=== PATIENT | female | born 1990 | race Caucasian/White ===

== ENCOUNTER 2023-10-29 08:00 | Outpatient (CLI) | payer SELFPAY ==
[2023-10-29 17:10] LABS: BILIRUBIN,URINE NEGATIVE (NEGATIVE); CLARITY,URINE CLEAR (CLEAR); GLUCOSE, URINE (UA) NEGATIVE (NEGATIVE); KETONES,URINE (UA) NEGATIVE (NEGATIVE); LEUKOCYTE ESTERASE, URINE NEGATIVE (NEGATIVE); NITRITE,URINE NEGATIVE (NEGATIVE); OCCULT BLOOD,URINE NEGATIVE (NEGATIVE); PH,URINE 6.5 PH (5.0-7.5); PROTEIN,URINE NEGATIVE (NEGATIVE); UROBILINOGEN,URINE 0.2 (NORMAL) E.U./dL (NORMAL)
[2023-10-29 17:29] LABS: BACTERIA,URINE Few /HPF (None Seen); RBC,URINE 0-5 /HPF (0-5); SQUAMOUS EPITHELIAL CELL,UR MOD Squamous (<= Few); WBC,URINE 0-3 /HPF (0-5)
== END 2023-10-29 23:59 | disposition home or self-care (01) ==
LOC: LAB.WC 08:00
PROVIDERS: ATTEND Obstetrics & Gynecology
DX: Z34.90 Encounter for supervision of normal pregnancy, unspecified, unspecified trimester (principal)
CPT/HCPCS: 81001; 87077; 87086; 87181

== ENCOUNTER 2023-11-09 10:07 | Outpatient (CLI) | payer SELFPAY ==
[2023-11-09 10:28] LABS: BASOPHILS % (AUTO) 0.9 %; EOSINOPHILS # (AUTO) 0.4 10^3/uL (0.0-0.7); EOSINOPHILS % (AUTO) 8.1 %; HCT - HEMATOCRIT 38.7 % (37.0-47.0); HGB - HEMOGLOBIN 12.1 g/dL (12.0-16.0); LYMPHOCYTES % (AUTO) 22.6 %; MEAN CORPUSCULAR HEMOGLOBIN 26.5 pg (27.0-31.0); MEAN CORPUSCULAR HGB CONC 31.3 g/dL (32.0-36.0); MEAN CORPUSCULAR VOLUME 84.9 fL (81.0-99.0); MEAN PLATELET VOLUME 10.6 fL (7.9-10.8); MONOCYTES # (AUTO) 0.4 10^3/uL (0.0-1.0); MONOCYTES % (AUTO) 8.6 %; NEUTROPHILS # (AUTO) 2.6 10^3/uL (1.5-6.6); NEUTROPHILS % (AUTO) 59.6 %; PLT - PLATELET COUNT 254 10^3/uL (130-450); RED BLOOD COUNT 4.56 10^6/uL (4.20-5.40); RED CELL DISTRIBUTION WIDTH 14.6 % (12.0-15.0); WHITE BLOOD COUNT 4.4 x10^3/uL (4.8-10.8)
[2023-11-10 03:09] LABS: HBsAG SCREEN Negative (Negative)
[2023-11-10 05:12] LABS: RPR Non Reactive (Non Reactive)
[2023-11-10 07:10] LABS: HIV SCREEN 4TH GENERATION Non Reactive (Non Reactive)
[2023-11-10 09:10] LABS: VARICELLA-ZOSTER AB IGG 222 index (Immune >165)
== END 2023-11-09 10:08 | disposition home or self-care (01) ==
LOC: LAB 10:07
PROVIDERS: ATTEND Obstetrics & Gynecology
DX: Z34.90 Encounter for supervision of normal pregnancy, unspecified, unspecified trimester (principal)
CPT/HCPCS: 36415; 85025; 86592; 86762; 86787; 86803; 86850; 86900; 86901; 87340; 87389

== ENCOUNTER 2023-11-26 10:43 | Outpatient (CLI) | payer BC ==
--- NOTE | 2023-11-26 15:22 | Ultrasound Report ---
PROCEDURE: OB 1st Trimester INDICATIONS: POSITIVE TEST OUTSIDE/PRIOR DATING DATA: Last menstrual period (LMP): Unknown. LMP-based estimated date of delivery (RONNIE): Unknown. First dating scan (date and location): 11/26/2023. Estimated date of delivery (RONNIE) from first dating scan: 05/31/2024. TECHNIQUE: Real-time scanning was performed of the fetus and maternal pelvic organs, with image documentation. COMPARISON: None. FINDINGS: Intrauterine gestational sac present. Embryo: Single intrauterine gestational sac is seen with fetus noted. [place]-rump length: 6.84 cm, 13 weeks, 1 day BPD: 2.23 cm, 13 weeks, 5 days HC: 8.44 cm, 13 weeks, 5 days AC: 6.53 cm, 13 weeks, 1 day FL: 0.94 cm, 12 weeks, 6 days Estimated gestational age by initial ultrasound is 13 weeks, 2 days. Heart rate: 158 bpm. Other: No perigestational fluid collection. Cervix is closed. Cervical canal measures 3.6 cm in lengt h. Measurement variability in dating: +/- 4 weeks by LMP, +/- 7 days by mean sac diameter (use before 6 weeks gestation if crown-rump length not able to be measured), +/- 5 days by crown-rump length (6-12 weeks gestation). Maternal organs: Ovaries appear within normal limits. IMPRESSION: 1. Single live intrauterine gestation with fetus seen. heart rate is 158 bpm. Estimated gestati onal age based on current study is 13 weeks, 2 days. Reviewed by: Miguel Carrera MD on 11/26/2023 3:21 PM PDT Approved by: Miguel Carrera MD on 11/26/2023 3:21 PM PDT Station ID: [id number]
== END 2023-11-26 10:44 | disposition home or self-care (01) ==
LOC: DI 10:43
PROVIDERS: ATTEND Obstetrics & Gynecology
DX: Z34.91 Encounter for supervision of normal pregnancy, unspecified, first trimester (principal)

== ENCOUNTER 2023-12-02 08:00 | Outpatient (CLI) | payer BC ==
[2023-12-02 20:34] LABS: CHLAMYDIA TRACHOMATIS DNA NEGATIVE (NEGATIVE); NEISSERIA GONORRHOEAE DNA NEGATIVE (NEGATIVE); TRICHOMONAS VAGINALIS DNA NEGATIVE (NEGATIVE)
== END 2023-12-02 23:59 | disposition home or self-care (01) ==
LOC: LAB.WC 08:00
PROVIDERS: ATTEND Obstetrics & Gynecology
DX: Z11.3 Encounter for screening for infections with a predominantly sexual mode of transmission (principal)
CPT/HCPCS: 87491; 87591; 87661

== ENCOUNTER 2024-01-19 08:44 | Outpatient (CLI) | payer BC ==
--- NOTE | 2024-01-19 11:34 | Ultrasound Report ---
PROCEDURE: OB Anatomy Scan INDICATIONS: SUPERVISION OF OUTSIDE/PRIOR DATING DATA: Last menstrual period (LMP): Unknown. LMP-based estimated date of delivery (RONNIE): Unknown. First dating scan (date and location): 11/26/2023. Estimated date of delivery (RONNIE) from first dating scan: 05/31/2024. The below data below was generated using the working RONNIE of 06/20/2024 TECHNIQUE: Ultrasound of the gravid uterus was performed and recorded. COMPARISON: None. FINDINGS: General: A single live intrauterine gestation is present. Presentation: Vertex Placenta: Placental position is posterior without previa. Amniotic fluid index: 12.8 cm, and for gestational age. heart rate: 171 beats per minute. Maternal cervical canal: 3.9 cm long; normal length is 2.5 cm or more. biometrics: Biparietal diameter: 4.8 cm, 20 week 4 day, 29 percentile Head circumference: 17.5 cm, 20 week 0 day, 8.1 percentile Abdominal circumference: 14.7 cm, 20 week 0 day, 14.1 percentile Femur length: 3.1 cm, 19 week 5 day, 7.6 percentile Estimated gestational age by working dates: 21 week 0 day Composite gestational age by current ultrasound: 20 week 0 day Estimated weight and percentile: 319.2 g, 5.8 percentile Measurement variability in biometric dating: +/- 10 days from 12-20 weeks gestation, +/- 2 weeks from 20-30 weeks gestation, +/- 3 weeks at 30 weeks gestation or more. Anatomic survey: Neuro: Ventricles are non-dilated at less than 10 mm. Cisterna magna is normal at 3-11 mm. Cerebel lum is normal in size and morphology. Nuchal skin fold: Normal at less than 6 mm between 14-20 weeks gestational age. Face: Nose and lips, facial profile are normal. Spine: No evidence for spina bifida. Heart: 4-chambered heart is present, with normal ventricular outflow tracts. Diaphragm: Diaphragm is intact. Stomach: Left-sided stomach is present. Kidneys: No hydronephrosis. Normal is less than 5 mm in 2nd trimester, less than 7 mm in 3rd trimester. Cord: 3-vessel cord has orthotopic insertion. Bladder: Normal in size. Extremities: All 4 extremities identified. Other: Not applicable. IMPRESSION: Single live intrauterine consistent with 20 week 0 day gestation by current ultrasound Normal anatomic survey Reviewed by: Norman Zafar MD on 01/19/2024 10:33 AM SUZANNE Approved by: Norman Zafar MD on 01/19/2024 10:33 AM SUZANNE Station ID: [id number]
== END 2024-01-19 08:45 | disposition home or self-care (01) ==
LOC: DI 08:44
PROVIDERS: ATTEND Obstetrics & Gynecology
DX: Z34.92 Encounter for supervision of normal pregnancy, unspecified, second trimester (principal)